=== PATIENT | female | born 1965 | race Caucasian/White ===

== ENCOUNTER 2020-06-20 20:23 | Emergency (ER) | payer OTHER ==
[~2020-06-20] VITALS: Ht 160 cm; Wt 138.8 kg
[2020-06-20 21:17] LABS: HEMATOCRIT 44.3 % (37.0-47.0); HEMOGLOBIN 15.4 gm/dL (12.0-15.0); MCH 33.1 pg (26.0-34.0); MCHC 34.7 g/dL (28.0-37.0); MCV 95.4 fL (80.0-100.0); MPV 9.6 fl. (7.2-11.1); RBC 4.65 mil/uL (4.20-5.00); RDW-CV 13.2 % (10.5-14.5); WBC 5.9 thou/uL (4.0-11.0)
[2020-06-20 21:23] LABS: CALCIUM 8.1 mg/dL (8.5-10.1); CREATININE 0.8 mg/dL (0.6-1.3); POTASSIUM 3.6 mmol/L (3.5-5.1)
[2020-06-20 21:51] LABS: INFLUENZA A ANTIGEN Negative (Negative); INFLUENZA B ANTIGEN Negative (Negative)
[2020-06-20 22:52] VITALS: BP 135/70
[2020-06-20] MEDS ORDERED: AMOXICILLIN875 MG PO (23:00)
[2020-06-20] MEDS ORDERED: PROMETHAZINE-C473 ML PO (23:01)
== END 2020-06-20 23:15 | disposition home or self-care (01) ==
LOC: M.ERS 20:23
PROVIDERS: Personal Emergency Response Attendant
DX: J18.9 Pneumonia, unspecified organism (principal); Z20.828 Contact with and (suspected) exposure to other viral communicable diseases; Z88.6 Allergy status to analgesic agent; Z88.8 Allergy status to other drugs, medicaments and biological substances